=== PATIENT | male | born 1970 | race Caucasian/White ===

== ENCOUNTER 2017-07-01 06:31 | Emergency (ER) | payer BC ==
[~2017-07-01] VITALS: Ht 182.9 cm; Wt 111.4 kg
[2017-07-01] MEDS ORDERED: NORVASC 10MG10 MG PO (06:40)
[2017-07-01] MEDS ORDERED: LOTENSIN20 MG PO (06:40)
[2017-07-01] MEDS ORDERED: COREG 25MG25 MG/TAB PO (06:41)
[2017-07-01] MEDS ORDERED: ZOCOR 20MG20 MG PO (06:41)
[2017-07-01] MEDS ORDERED: ALDACTONE 25MG25 M1 PO (06:41)
[2017-07-01] MEDS ORDERED: VICODIN ES 7.5 (06:42)
[2017-07-01] MEDS ORDERED: DESYREL 50MG50 MG PO (06:42)
[2017-07-01] MEDS ORDERED: LYRICA 25MG CAP25 MG PO (06:42)
[2017-07-01] MEDS ORDERED: NEURONTIN800 MG/TAB PO (06:43)
[2017-07-01] MEDS ORDERED: FLEXERIL 1010 MG/TAB PO (07:31)
[2017-07-01 07:45] VITALS: BP 126/70; PULSE 84; TEMP 98.3
== END 2017-07-01 07:46 | disposition home or self-care (01) ==
LOC: COL.ER 06:31
DX: G89.29 Other chronic pain (principal); M54.5 Low back pain; I10 Essential (primary) hypertension; E78.5 Hyperlipidemia, unspecified; F17.290 Nicotine dependence, other tobacco product, uncomplicated; Z98.890 Other specified postprocedural states
CPT/HCPCS: J1885; J2270; J2405